=== PATIENT | female | born 1930 | race African-American/Black ===

== ENCOUNTER 2019-04-03 19:19 | Inpatient (IN) | payer OTHER, BC ==
[~2019-04-03] VITALS: Ht 152.4 cm; Wt 59.1 kg
--- NOTE | ~2019-04-03 | D ---
[facility] [place] [address] DISCHARGE SUMMARY Name: MATTHEW CALDERON Room #: 526B-B [facility] IN M.R.#: [id number] Admission: 04/03/19 Attend Phys: Raymond Billings DO Discharge: 04/11/19 Date of : [birth year] Report #: [id number] THIS REPORT FOR: cc: Ana Marx MD, Malathi MD Kerstein,Raymond Florence DO ~ THIS REPORT FOR: //name// CC: Raymond Marx DATE OF SERVICE: 04/11/2019 PSYCHIATRIC DISCHARGE SUMMARY ATTENDING PHYSICIAN: Raymond Billings DO FIXING CARPENTER: At time of discharge, Blu Pham MD DISCHARGE DIAGNOSES: Major neurocognitive disorder, likely multifactorial with behavioral disturbance. MEDICAL COMORBIDITIES: Include acute on chronic renal failure, protein-calorie malnutrition, dysphagia, urinary frequency. DISCHARGE PLAN: The patient is discharging to the [facility]. Psychiatric medical care by receiving facility. DISCHARGE DIET: Mechanical ground. DISCHARGE MEDICATIONS: Taking Haldol 2 mg p.o. twice per day for psychosis, DuoNeb, ipratropium, albuterol 3 mL inhaled q. 4 hours p.r.n. shortness of breath, tamsulosin 0.8 mg p.o. daily for urinary incontinence. Please note, Depakote was stopped this admission due to repeated low blood levels. LABORATORY DATA: Significant laboratories this admission; H and H 12.3 and 39.2, white count 6.8, platelet count 265. ____ renal function; creatinine improved to 1.1, glucose 101, calcium 9.3. REASON FOR ADMISSION: Back on 04/03/2019, 88-year-old female sent to the ED. HOSPITAL COURSE: The patient was admitted to Geriatric Psychiatry Unit. Initially, difficult ____ antipsychotic as her reasons for admission was somewhat ____ ended up taking Haldol 2 mg p.o. twice per day. PHYSICAL EXAMINATION: [facility] [address] [place] [address] DISCHARGE SUMMARY Name: MATTHEW CALDERON Room #: 526B-B [facility] IN M.R.#: [id number] Admission: 04/03/19 Attend Phys: Raymond Billings DO Discharge: 04/11/19 Date of : [birth year] Report #: [id number] VITAL SIGNS: On the day of discharge; temp 36.9, pulse 72, respirations 18, BP 130/53, O2 sat 96%. MUSCULOSKELETAL: Nonambulatory. MENTAL STATUS EXAMINATION: This is a well-developed, black female, appearing stated age. Attention limited. Concentration limited. Speech normal rate. Denied suicidality. Denied homicidality. Memory not formally tested. Insight impaired. Judgment impaired. Fund of knowledge well below average. PROGNOSIS: For this patient is guarded and will depend on her other family members to help for getting her limitations. By: [id number] Raymond Billings DO /nt
[2019-04-03 19:21] VITALS: BP 128/101
[2019-04-03] MEDS ORDERED: ACETAMINOPHEN PO (19:32)
[2019-04-03] MEDS ORDERED: FAMOTIDINE 10 M10 MG PO (19:33)
[2019-04-03] MEDS ORDERED: EXELON1 EACH TRANSDERM (19:33)
[2019-04-03] MEDS ORDERED: VALPROIC A250 MG/51 PO (19:33)
[2019-04-03] MEDS ORDERED: IPRAT-ALBUT 0.5-3 ML INH (19:34)
[2019-04-03] MEDS ORDERED: ENBRACE HR SOF1 EACH PO (19:34)
[2019-04-03] MEDS ORDERED: TAMSULOSIN HCL0.4 MG PO (19:35)
[2019-04-03] MEDS ORDERED: GEODON20 M1 IM (19:35)
[2019-04-03] MEDS ORDERED: ZOFRAN4 MG PO (19:36)
[2019-04-03 19:43] LABS: HEMATOCRIT 39.2 % (37.0-47.0); HEMOGLOBIN 12.3 gm/dL (12.0-15.0); MCH 26.4 pg (26.0-34.0); MCHC 31.4 g/dL (28.0-37.0); MCV 84.1 fL (80.0-100.0); RBC 4.66 mil/uL (4.20-5.00); RDW 15.9 % (10.5-14.5); WBC 6.8 thou/uL (4.0-11.0)
[2019-04-03 19:44] LABS: URINE BILIRUBIN NEGATIVE (Negative); URINE BLOOD NEGATIVE (Negative); URINE CLARITY CLEAR; URINE COLOR YELLOW; URINE GLUCOSE-RANDOM* NEGATIVE (Negative); URINE KETONES 1+ (Negative); URINE LEUKOCYTES-REFLEX NEGATIVE (Negative); URINE NITRITE-REFLEX NEGATIVE (Negative); URINE PROTEIN (DIPSTICK) NEGATIVE (Negative); URINE SPECIFIC GRAVITY 1.015 (1.005-1.035)
[2019-04-03 19:50] LABS: CALCIUM 9.5 mg/dL (8.5-10.1); CREATININE 1.4 mg/dL (0.6-1.0); POTASSIUM 4.2 mmol/L (3.5-5.1)
--- NOTE | 2019-04-03 20:15 | NUR ---
SPOKE TO EDWIN DUMONT FROM [facility]. WILL BE DOWN TO COMPLETE AN ASSESSMENT SHORTLY.
[2019-04-03 22:30] VITALS: BP 167/89
[2019-04-03 22:47] VITALS: BP 135/84
--- NOTE | 2019-04-04 01:13 | NUR ---
ARRIVED ON THE [facility] FLOOR VIA GURNEY ACCOMPANIED BY ED STAFF @ 22:35, TRANSFERRED FROM [facility] TO BED 522A X2 STAFF ASSIST. AMBULATED 4 STEPS TO BED X1 ASSIST. DROWSY, AWAKENED TO TRANSFER AND RETURNED TO SLEEP AFTER ASSESSMENT. ORIENTED X 1 GIVES HER NAME LISS, ANSWERS NO OTHER ORIENTATION QUESTIONS AT THIS TIME. VS 135/84 78 16 98%. HRRR, S1S2 AUSCULTATED. LUNG SOUNDS DIMINISHED NOT BREATHING DEEPLY, SEEMS UNABLE TO FOLLOW DIRECTIONS. ABD N X 4 Q. SKIN ON HEELS INTACT, CAP REFILL <3SEC. PINK PRESSURE NOTED TO BUTTOCKS. HEIGHT 5', WEIGHT 150.8. FALL PRECAUTIONS PUT IN PLACE. DIET IS MECHANICAL GROUND CHOP. DIETARY CONSULT FOR BEDSIDE SWOLLOW STUDY. HOSPITALIST CONSULT DR ROSA, PT CONSULT. SLEEPING AT THIS WRITING, BED IN LOW POSITION, BED ALARM SET, WILL CONTINUE TO MONITOR Q 12 MINUTES FOR PATIENT SAFETY.
--- NOTE | 2019-04-04 06:29 | NUR ---
SLEPT 2.4 HOURS OVERNIGHT.
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
[2019-04-04 10:17] LABS: ALBUMIN 3.3 g/dL (3.4-5.0); DIRECT BILIRUBIN 0.2 mg/dL (<0.1-0.2); TOTAL BILIRUBIN 0.7 mg/dL (<0.1-1.0); TOTAL PROTEIN 6.7 g/dL (6.4-8.2)
[2019-04-04 10:36] LABS: TSH 2.717 uIU/mL (0.358-3.740)
--- NOTE | 2019-04-04 11:03 | NUR ---
Sw spoke with pt's son/guardian Caleb and he reported that she has living at [facility] since Feb and was at [facility] prior to this. Pt was [facility] [place] [facility]. Pt will d/c to [facility] when stable. Lulú will send updates and assist with d/c planning. Intake assessment and TP are completed. Family meeting set up for Apr 06 at 2pm.
[2019-04-04 11:32] VITALS: BP 135/84
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
[2019-04-04 19:15] VITALS: BP 135/56
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
[2019-04-05 07:30] VITALS: BP 132/52
[2019-04-05 11:12] VITALS: BP 132/52
--- NOTE | 2019-04-05 11:40 | NUR ---
ASSUMED CARE AT 0700 THIS MORNING. PT. IN BED, GOTTEN UP BY COMMISSIONING MANAGER'S. SHE IS DRESSED AND IN A W/C. ON THE UNIT FOR BREAKFAST. COOPERATIVE WITH ASSESSMENT. STATES SHE IS NOT IN PAIN AND DENIED NEEDING HELP. FEEDS HERSELF. COOPERATIUE WITH TAKING MEDICATIONS. DENIES SI/HI TODAY WELL AVH. AFFECT FLAT, BUT DENIES DEPRESSION.
[2019-04-05 19:37] VITALS: BP 128/72
[2019-04-05 21:00] VITALS: BP 128/72
--- NOTE | 2019-04-06 03:52 | NUR ---
ASSESSMENT: PT REMAIN ALERT AND ORIENT TIMES THREE. REFUSED TO TAKE DEPAKOTE, IM ZIPARASIDONE GIVEN PER ORDERS. VSS, AFEBRILE. SLEPT ALL NIGHT LONG. EASY TO AWAKE, DID NOT VERBALLY RESPOND TO THIS RN. UP WITH GB AND ASSIST OF ONE TO THE BR. SLOW PROGRESS TOWARDS DC GOALS, WILL CONTINUE TO MONITOR.
[2019-04-06 05:38] VITALS: BP 128/72
[2019-04-06 07:55] VITALS: BP 106/69
[2019-04-06 11:12] VITALS: BP 132/52
--- NOTE | 2019-04-06 15:13 | NUR ---
BRET and Dr Billings met with Caleb to discuss care and d/c plans. Dr billings provided medication and dementia education. Caleb is satisfied with pt discahrging to [facility] on Wednesday. Pt will need at least 3 days of meds compliance to d/c. BRET sent updates to [facility] this am and spoke with a nurse there. It was reported that she might be ready to d/c wednesday. [facility] understands and supports this d/c plan.
--- NOTE | 2019-04-06 15:46 | NUR ---
PATIENT WAS IN BED WHEN CARE ASSUMED, ASSISTED UP IN W/C BY STAFF. PATIENT USES W/C FOR MOBILITY, ABLE TO AMBULATE A SHORT DISTANCE WITH ASSIST OF ROLLER WALKER. PATIENT IS EATING MEALS, AND DRINKING FUID WELL. PATIENT DENIES SUICIDAL/HOMICIDAL IDEATION. PATIENT HAS BEEN CALM, COOPERAIVE WITH CARE. SHE PARTICIPATES IN GROUP THERAPY. AFFECT IS BRIGHT, MOOD IS HAPPY. NO AGGRESSION OR AGITATION NOTED, SITTING QUIETLY BY A TABLE DOING SOME DRAWINGS, WILL MONITOR FOR SAFETY.
[2019-04-06 19:30] VITALS: BP 96/63
--- NOTE | 2019-04-07 00:05 | NUR ---
ASSUMED CARE ON 04/06/19 AT 1915, PATIENT IS ALERT AND ORIENTED X2-3, SHE IS CALM AND COOPERATIVE WITH THIS NURSE. DURING ONE TO ONE PATIENT WAS IN BED WITH EYES CLOSED THAT OPENED SPONTANEOUSLY TO MY VOICE. SHE APPEARS WITH A EUTHYMIC AFFECT, GREETED THIS NURSE POLITELY AND REPORTS 'IM DOING FINE.' SHE DENIES FEELINGS OF ANXIETY, DENIES SI HI, ET FEELINGS OF DEPRESSION. SHE IS COOPERATIVE WITH MEDICATION AND DID NOT REPORT ANY MEDICAL CONCERNS, SHE ALSO DOESNT APPEAR TO BE IN DISTRESS. NURSING WILL MAINTAIN ALL PRECAUTIONS TO ENSURE SAFETY AT ALL TIMES.
[2019-04-07 07:45] VITALS: BP 160/66
--- NOTE | 2019-04-07 13:39 | NUR ---
During treatment team meeting this am it was discovered that this pt needed another IM last night, so d/c will be put off a few more days. will need 3 days post IM. D/C could be Wednesday or Wed next week. Weekend Sw will send updates on Wednesday.
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
[2019-04-07 21:13] VITALS: BP 131/56
--- NOTE | 2019-04-08 07:41 | NUR ---
PROGRESS PT ALERT AND ORIENTED TO SELF, PLACE, AND STAFF TO BED AFTER EVENING MEDS SLEPT ALL NOC.
[2019-04-08 09:38] VITALS: BP 121/49
--- NOTE | 2019-04-08 18:03 | NUR ---
Assumed patient care at 0715. Patient's vital signs have been stable. She has consumed adequate food and fluids during this shift. Patient has been noted to converse with one female patient during this shift. No other noted interactions. Patient refused half of her am medications. Medications were placed in applesauce (she took one bite from a familiar nurse). Patient refused to interact with this nurse. No aggressive behavior noted. No suicidal and/or homicidal statements made. Patient continues to be a fall risk, gait is unsteady with rolling walker. She is incontinent at times. Last reported BM was 04/07/2019. Will continue to monitor.
[2019-04-08 19:50] VITALS: BP 125/78
[2019-04-09 05:55] LABS: CALCIUM 9.3 mg/dL (8.5-10.1); CREATININE 1.1 mg/dL (0.6-1.0); POTASSIUM 4.3 mmol/L (3.5-5.1)
--- NOTE | 2019-04-09 07:55 | NUR ---
PROGRESS PT ALERT AND ORIENTED TO SELF, PLACE, CONFUSED ABOUT TIME AND DATE. DOES TALK TO HERSELF WHEN SHE THINKS SHES ALONE REFUSED TO ANSWER IF SHE WAS HALLUCINATING. VOIDED AN EXTRA LARGE AMOUNT OF URINE IN BRIEF, TOOK SHOWER THIS AM WITH MODERATE ASSISTANCE SKIN IS DRY SO BARRIER CREAM APPLIED, WEARING PULL UP BRIEF. TOLERATING DIET WITH ADEQUATE PO FLUID INTAKE.
[2019-04-09 09:24] VITALS: BP 145/71
--- NOTE | 2019-04-09 15:32 | NUR ---
PT A&OX3, DENIES SI/HI. PATIENT SAT MOST OF DAY IN DAY ROOM. PATIENT INTERACTED WITH ROOMMATE. PATIENT MOOD IS APPROPRIATE AND COOPERATIVE, HER FACIAL EXPRESSION IS FLAT. PATIENT TOLERATED MEALS. WILL CONTINUE TO MONITOR.
[2019-04-09 19:59] VITALS: BP 147/66
--- NOTE | 2019-04-10 07:29 | NUR ---
PROGRESS PT AWAKE AND ALERT AT START OF SHIFT MEDS GIVEN AND PT ASSISTED TO BED AND SLEPT ALL NIGHT.
[2019-04-10 07:54] VITALS: BP 140/61
--- NOTE | 2019-04-10 08:00 | NUR ---
PT NOT UP AT THIS TIME. PT SLEEPING IN BED. PT VS STABLE.
--- NOTE | 2019-04-10 12:45 | NUR ---
PT UP NOW AT THIS TIME. PT WALKED WITH WALKER DOWN TO DINING ROOM. PT SAT DOWN IN CHAIR AND AT 50% OF LUNCH.
--- NOTE | 2019-04-10 12:46 | NUR ---
PT STILL SLEEPING AT THIS TIME.
[2019-04-10 13:00] VITALS: BP 140/61
--- NOTE | 2019-04-10 13:15 | NUR ---
PT TOOK MEDS IN PUDDING AND WATER.
--- NOTE | 2019-04-10 13:16 | NUR ---
PT ONLY TOOK ONE FLOMAX AND STATED SHE DIDN'T WANT ANY MORE DUE TO NOT BEING SICK, PT STATED IF SHE WAS SICK SHE WOULD TAKE MEDS.
--- NOTE | 2019-04-10 13:53 | NUR ---
BRET contacted Fanny with [facility] who said d/c on 04/11 @10am is okay. She said they do not provide transportation. She gave the fax number of [phone] to fax P/T orders to and d/c orders tomorrow. BRET faxed p/t orders to number given. BRET contacted [facility] and arranged for transportion. Trip # [id number] BRET provided an update to pt's nursing staff. BRET team will continue to follow pt during her stay on this unit.
[2019-04-10 20:26] VITALS: BP 102/79
[2019-04-10 20:45] VITALS: BP 102/79
--- NOTE | 2019-04-11 00:07 | NUR ---
PATIENT REFUSED HER HS MEDS OF TRAVIS BEJARANO. SHE HAS BEEN CALM AND COOPERATIVE. SHE WAS ASLEEP IN BED WHEN I CAME ON DUTY AT 1900. SHE CONTINUES TO SLEEP. SHE DOES AWAKE AND SPEAK WHEN SPOKEN TOO. SHE DOESN'T WANT TO TAKE MEDS BECAUSE SHE THINKS NOTHING IS WRONG WITH HER. I TRIED TO COAX HER AND EXPLAIN WHY SHE NEEDED THE MEDS IN A SIMPLE WAY WITHOUT SUCCESS. PATIENT'S WC NEXT TO BED. INCONTINENT CARES BEING DONE. SHE HAS BEEN CALM AND COOPERATIVE. BED IN LOW POSITION AND BED ALARM ON.
--- NOTE | 2019-04-11 08:45 | NUR ---
PT SITTING OUT IN DINING ROOM. PT EATING BREAKFAST. PT ASKING WHAT TIME SHE IS LEAVING TODAY. PT LEAVING AT 1000. PT TOOK MEDS WITHOUT ANY ISSUES THIS AM.
[2019-04-11 09:00] VITALS: BP 130/53
[2019-04-11] MEDS ORDERED: HALOPERIDOL 1 MG1 MG PO (09:00)
[2019-04-11 09:40] VITALS: BP 130/53
--- NOTE | 2019-04-11 10:00 | NUR ---
PT LEFT VIA W/C VAN ACCOMPANIED BY STAFF.
--- NOTE | 2019-04-11 10:00 | NUR ---
SW sent updates, d/c summary and meds list to [facility], made packet and provided this update to the nurse. FAX packet was left on chart with confirmation.
--- NOTE | 2019-04-11 10:15 | NUR ---
GAVE REPORT TO THERESE PINEDA AT [facility].
== END 2019-04-11 10:00 | disposition short-term general hospital (02) | DRG 57 ==
LOC: ER 19:19 → SBH 21:56 → EROBS 21:56 → SBH 21:56 → EROBS 21:56 → SBH 22:45
PROVIDERS: Emergency Medicine Emergency Medical Services; Hospitalist; ADMIT Psychiatry & Neurology Psychiatry
DX: G30.9 Alzheimer's disease, unspecified (principal); F01.51 Vascular dementia, unspecified severity, with behavioral disturbance; N17.9 Acute kidney failure, unspecified; N18.3 Chronic kidney disease, stage 3 (moderate); F02.81 Dementia in other diseases classified elsewhere, unspecified severity, with behavioral disturbance; E46 Unspecified protein-calorie malnutrition; R13.10 Dysphagia, unspecified; K21.9 Gastro-esophageal reflux disease without esophagitis; R35.0 Frequency of micturition; Z68.25 Body mass index [BMI] 25.0-25.9, adult; Z79.899 Other long term (current) drug therapy
CPT/HCPCS: 10880

== ENCOUNTER 2019-06-07 18:35 | Inpatient (IN) | payer OTHER ==
[~2019-06-07] VITALS: Ht 142.2 cm; Wt 73.4 kg
[~2019-06-07 18:35] MED LIST: ACETAMINOPHEN PO; ENBRACE HR SOF1 EACH PO; EXELON1 EACH TRANSDERM; FAMOTIDINE 10 M10 MG PO; GEODON20 M1 IM; HALOPERIDOL 1 MG1 MG PO; IPRAT-ALBUT 0.5-3 ML INH; TAMSULOSIN HCL0.4 MG PO; VALPROIC A250 MG/51 PO; ZOFRAN4 MG PO
[2019-06-07 18:36] VITALS: BP 141/69
[2019-06-07] MEDS ORDERED: TYLENOL325 MG PO (19:01)
[2019-06-07] MEDS ORDERED: MILK OF MA400 MG/5 M PO (19:02)
[2019-06-07] MEDS ORDERED: VITAMIN D210 MCG (19:03)
[2019-06-07 19:04] LABS: ABSOLUTE NEUTROPHILS 4.5 thou/uL (1.4-8.2); BASOPHILS 0.7 % (0.0-2.0); EOSINOPHILS 6.2 % (0.0-3.0); HEMATOCRIT 34.7 % (37.0-47.0); HEMOGLOBIN 11.2 gm/dL (12.0-15.0); LYMPHOCYTES 20.2 % (24.0-44.0); MCH 27.2 pg (26.0-34.0); MCHC 32.3 g/dL (28.0-37.0); MONOCYTES 11.8 % (1.0-8.0); PLATELET COUNT 266 thou/uL (150-400); POLYS 61.1 % (36.0-66.0); RBC 4.13 mil/uL (4.20-5.00); RDW 15.6 % (10.5-14.5); WBC 7.3 thou/uL (4.0-11.0)
[2019-06-07] MEDS ORDERED: VITAMIN D3250 MC2 PO (19:05)
[2019-06-07 19:18] LABS: CALCIUM 9.3 mg/dL (8.5-10.1); CREATININE 1.2 mg/dL (0.6-1.0)
[2019-06-07 19:24] LABS: ALBUMIN 2.9 g/dL (3.4-5.0); TOTAL BILIRUBIN 0.4 mg/dL (<0.1-1.0); TOTAL PROTEIN 6.6 g/dL (6.4-8.2)
[2019-06-07 19:26] LABS: URINE BILIRUBIN NEGATIVE (Negative); URINE BLOOD NEGATIVE (Negative); URINE CLARITY CLEAR; URINE COLOR YELLOW; URINE GLUCOSE-RANDOM* NEGATIVE (Negative); URINE KETONES NEGATIVE (Negative); URINE LEUKOCYTES-REFLEX NEGATIVE (Negative); URINE NITRITE-REFLEX NEGATIVE (Negative); URINE PROTEIN (DIPSTICK) NEGATIVE (Negative); URINE SPECIFIC GRAVITY >= 1.030 (1.005-1.035)
[2019-06-07 19:39] LABS: AMP/METHAMP Negative (Negative); BARBITURATES Negative (Negative); BENZODIAZEPINES Negative (Negative); COCAINE Negative (Negative); METHADONE Negative (Negative); OPIATES Negative (Negative); PCP Negative (Negative)
[2019-06-07 20:39] VITALS: BP 141/69
[2019-06-07 21:30] VITALS: BP 163/84
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
[2019-06-08 09:26] VITALS: BP 143/66
--- NOTE | 2019-06-08 09:59 | NUR ---
0700 ASSUMED CARE OF PATIENT, PATIENT IN ROOM AT THAT TIME. PATIENT TO DAYROOM FOR BREAKFAST VIA WC. PATIENT DENIES NEEDS AT THAT TIME.
--- NOTE | 2019-06-08 10:08 | NUR ---
BRET completed chart review and pt is familiar to this worker. SW compelted the intake assessment and TP. BRET called Caleb Rome Guardian to confirm her admission here and that he wants her to d/c júnior to [facility] at D/C.
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
--- NOTE | 2019-06-08 11:11 | NUR ---
I spoke with the Employee Benefits Insurance Agent of [facility] yesterday 06/07/19. We were needing confirmation that if we admitted Alysia that [facility] would take her back, once she becomes stable. He reassured me that they would take her back. Her admission is contingent upon her returning to [facility].
--- NOTE | 2019-06-08 11:51 | NUR ---
On Jun 07, 2019 I called to speak with the admission coordinator of [facility]. This call was to make sure that if we admitted Alysia they would readmit her. The media coordinator returned my call today. I informed her that I spoke with her application systems administrator regarding Alysia being readmitted to [facility]. She was in agreement of readmitting Alysia once she is stable. The rationale for this confirmation of accepting Alysia back, was ddue to we had made a referral to them and the media coordinator refused to accept our patient due to the patient had not been tested for COVID. She denied that reasoning. She stated the reason they denied our patient was due to they did not have bed available. I reiterated that the message I was given the denial was due to hte patient not being tested for COVID. She was in agreement for Alysia being readmitted to [facility].
[2019-06-08] MEDS ORDERED: NYSTATIN1 EAC2 MISCELL (12:31)
[2019-06-08] MEDS ORDERED: NEBULIZER MISCELL (12:32)
[2019-06-08] MEDS ORDERED: IPRAT-ALBUT 0.5-3 ML INH (12:33)
[2019-06-08] MEDS ORDERED: ZOFRAN4 MG PO (12:36)
[2019-06-08] MEDS ORDERED: BIOFREEZE118 ML TOP (12:38)
[2019-06-08] MEDS ORDERED: HALOPERIDOL 1 MG1 MG PO (12:39)
--- NOTE | 2019-06-08 14:22 | NUR ---
Pt was sleepy. No gorups due to COVID 19 restrictions
--- NOTE | 2019-06-08 19:13 | NUR ---
AT 1720 ATTEMPTED TO WAKE PATIENT UP TO EAT DINNER. PATIENT WILL NOT WAKE UP AND KEEPS EYES CLOSED EVEN WITH MOVEMENT AND CALLING OUT NAME. REACTED TO STERNAL RUB SCREAMING AND PINCHING NURSES. PATIENT QUICKLY SHUTS EYES AND AGAIN HAS NO RESPONSE TO STAFF. AT 1750 PATIENT TAKEN TO ROOM VIA WC AND WITH ASSIST X3 PATIENT TO BED. PATIENT CONTINUE TO KEEP EYES CLOSE WHILE BEING TRANSFERED TO BED. PATIENT TURNED TO SIDE AND BOTTOM CHECKED. BRIEF NOTED TO BE DRY AND NO BED SORES NOTED TO BOTTOM. CLEAN GOWN ON AND COVERED PATIENT WITH BLANKETS. WHEN TEXTURING MACHINE FIXER STARTS TO LEAVE PATIENT OPENS EYES TO SEE IF STAFF IS GONE THE SOON SHE SEES TEXTURING MACHINE FIXER SHE QUICKLY SHUTS EYES. REPORT GIVEN TO ONCOMING SHIFT.
--- NOTE | 2019-06-08 22:39 | NUR ---
Care assumed of patient at 191: Patient sleeping in bed at start of shift. Patient woke up and was assisted to the bedside commode. Continent of bladder. After using the bathroom, patient started to become combative with staff. Patient scratching staff, swinging arms, swinging legs, yelling. Patient required staff x7 to be assisted due to increased behaviors. Attempting to bite, cursing. Despite all attempts at re-direction, not effective. MD notified. Order obtained for Ativan and Haldol IM. Medication administered with staff x7. Patient attempting to walk and pace about room. Unsteady gait, poor balance, weakness. After approximately 20 minutes, patient was able to sit in w/c in her room. Provided blanket and has remained resting in w/c, refusing to go to bed. Patient refused HS medication. Spit medication out on floor. Refused HS snack. Refused head to toe assessment. Patient delusional about being to the President, her estate being stolen. Demanding for her grandson to come get her to take her home. Stating that she has been "dumped here" against her will. No s/s of SI/HI/AH/VH. No s/s of pain or discomfort noted. Patient seated quietly in w/c in her room now, appears to be sleeping.
[2019-06-09 08:10] VITALS: BP 132/40
[2019-06-09 09:38] VITALS: BP 132/40
--- NOTE | 2019-06-09 15:56 | NUR ---
SW met with Pt 1 on in the common area/ dinning room. Pt is only oriented to self. Pt did stated she was hungry and had ate lunch and a snack. SW informed Pt on when dinner will be servered. Pt stated she understood. Pt did not express any other concerns or needs at this time. Due to COVID-19 restiction SW group has been canceled
--- NOTE | 2019-06-09 17:10 | NUR ---
Assumed pt care this am, initally was lethargic in the am and did not want to go out for breakfast. VS stable, was able to get the pt out for lunch and dinner using her wheelchair. Continent of both bowel and bladder, pt is able to transfer and walk using small steps from the WC to the toilet with minimal assistance, pt had a large bm today. Has a good appetite, medication and diet are well tolerated, hydration encouraged. POC followed, no signs or verbalizations of distress have been noted. Spent most of her time in her WC in the dining area watching TV and would doze off.
--- NOTE | 2019-06-09 22:48 | NUR ---
Care assumed of patient at 1915: Patient sleeping in bed at start of shift. Patient easily arousable. Alert and oriented to person only. Confused and forgetful. Calm, pleasant and cooperative. Slow to respond. Denies pain or discomfort. Compliant with nursing assessment. Answering yes/no questions appropriately. No delusional or paranonia statements observed. Declined HS snack. Took HS medication whole without difficulty. Allowed nurse to administer eye drops without incident. No aggression or agitation observed. Denies SI/HI/AH/VH. No statements made regarding going home, speaking with her grandson or her "estate". Patient has been resting quietly in bed thus far this shift.
[2019-06-10 07:53] VITALS: BP 141/63
--- NOTE | 2019-06-10 10:27 | NUR ---
Assumed care of pt at 0700. Pt awake, calm and seated at bedside. Pt alert to self and somewhat confused/forgetful. Pt assisted to dayroom by nurse, ambulating with walker. Pt took all scheduled meds whole, without difficulty. Pt denies SI/HI/AH/VH. Pt assisted with shower and tolerated well. Pt participated in group and seated in dayroom for activities. Will continue to monitor.
[2019-06-10 10:39] VITALS: BP 141/63
--- NOTE | 2019-06-10 14:18 | NUR ---
0700 Lying in bed without s/o distress. Alert, orientated to self only. No speech/behavior suggestive of SI/HI. Ambulates with slow gait with walker to dining room. Breath sounds clear t/o. Reg HR auscultated. Color pink with brisk capillary refill and palpable peripheral pulses. +1 edema to lower extremities. Incontinent of yellow urine but then urinated moderate amount in bedside commode. Active bowel sounds over soft, rounded abdomen.
--- NOTE | 2019-06-10 17:30 | NUR ---
SW met with patients individually instead of group due to COVID-19 guideline Patient stated her name to SW but did not engage otherwise.
[2019-06-10 22:00] VITALS: BP 141/63
--- NOTE | 2019-06-11 00:22 | NUR ---
Assumed care of patient this pm shift. Patient in bed in her room lying down. Patient calm and cooperative. Patient states that she is well and does not need to be here or take any medication. Patient refused night meds. Patient denies hi/si. Patient denies pain. Patient in hospital gown. Patient ambulates with walker and has a bedside commode available. Patients assessment shows clear breath sounds, active bowel sounds, and s1 s2 heard with auscultation. Patients affect is blunted. We will continue to monitor.
[2019-06-11 09:33] VITALS: BP 157/57
[2019-06-11 10:15] VITALS: BP 157/57
--- NOTE | 2019-06-11 10:22 | NUR ---
ASSUMED CARE AT 0700 THIS MORNING. SHE WAS GOTTEN UP BY ASSISTANT CENTER MANAGER'S FOR BREAKFAST. SHE WAS COUGHING.
--- NOTE | 2019-06-11 16:50 | NUR ---
SW completed 1 on 1 vs. group due to COVID-19 guidelines. Patient was sleeping during rounds.
--- NOTE | 2019-06-11 17:50 | NUR ---
SW faxed nursing notes and progress report to [facility].
[2019-06-11 19:33] VITALS: BP 107/57
--- NOTE | 2019-06-12 01:28 | NUR ---
Assumed care of patient this pm shift. Patient was sitting in the mileu at a table by herself having a snack. Patient was irritable about taking her evening medications but eventually did take them. Patients affect is blunted. Patient states that her grandson put her in this facility so that he could take over her estate. 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 Patients assessment shows clear breath sounds, active bowel sounds, and s1 s2 heard with auscultation. Patient uses the bedside commode with assistance. Patient takes medications whole. Patient ambulates with walker or wheelchair. We will continue to monitor.
[2019-06-12 08:19] VITALS: BP 141/60
[2019-06-12 11:45] VITALS: BP 141/60
--- NOTE | 2019-06-12 11:55 | NUR ---
Assumed care of pt at 0700. Pt lying in bed sleeping. 0730, Pt awake, alert and assisted w/ADLs. Pt assisted to day (via walker) and seated at table. Pt tolerated scheduled meds well without difficutly. Pt continues to have reddened r. eye and tolerates scheduled eye drops well. Pt has an order for CXR for dry cough since she's had upon admission. Pt denies pain, denies SI/HI/AVH. Pt will stay in room for meals/groups until further notice. Will continue to monitor.
[2019-06-12 16:29] VITALS: BP 119/72
[2019-06-12 19:20] VITALS: BP 134/72
[2019-06-12 22:01] VITALS: BP 134/72
--- NOTE | 2019-06-12 22:23 | NUR ---
PATIENT WAS UP IN WC IN HER ROOM WHEN THIS NURSE CAME ON AT 1900. PT WAS ASSISTED TO THE BSC WHERE SHE VOIDED AND HAD A LARGE FORMED BM. PATIENT WAS GIVEN MARKERS AND PAPER TO COLOR ON AT BEDSIDE TABLE. PT STATES HER MID LOWER BACK/ABDOMEN WAS HURTING. TYLENOL 650MG VIVEN AT 195. PATIENT WAS A/0X 2-3 BUT FRUSTRATED SHE COULD NOT LEAVE ROOM D/T A DRY COUGH SHE HAS BEEN HAVING. LORAZEPAM 0.5MG GIVEN AT 194 TO HELP HER ANXIETY AND HELP TO RELAX. PATIENT TOOK HER HS MEDS EARLY D/T SHE WAS GETTING DROWSY AND WANTED TO GO TO BED. PATIENT ASSISTED BY 2 TO BED D/T SEDATED/DROWSY FROM MEDS. PATIENT'S LUNGS ARE CTA BILATERALLY. DRY COUGH X 1 SO FAR TONIGHT. NONPRODUCTIVE. VSS AND NO FEVER. PATIENT IS SLEEPING COMFORTABLY AND WALKER IS BESIDE BED. BSC BESIDE BED ALSO. BED IN LOW POSITION AND BED ALARM ON D/T SEDATED WITH MEDS AND MAY NEED ASSISTANCE WITH BALANCE. WILL CONTINUE TO MONITOR. PATIENT DID HAVE ICE CREAM IN ROOM FOR HS SNACK. RIGHT EYE CONTINUES TO BE RED AND LEFT EYE IS CLEAR BUT WAS SORE TONIGHT. CIPRO EYE GTTS TOLERATED WELL. CONTINUING TO MONITOR.
--- NOTE | 2019-06-13 04:32 | NUR ---
PATIENT HAS BEEN SLEEPING SOUNDLY THRU NIGHT AND HAS NOT AWAKENED TO USE THE BATHROOM. FREQUENT CHECKS ON PATIENT TO CHECK ON RESPIRATIONS SINCE HAD HALDOL AND LORAZEPAM. PATIENT APPEARS COMFORTABLE ANDSLEEPING SOUNDLY. BED IN LOW POSITION. BED ALARM ON. WC BESIDE BED AND BSC BY BED. CONTINUING TO MONITOR.
--- NOTE | 2019-06-13 05:49 | NUR ---
PATIENT STILL SLEEPING. PATIENT HAS COUGHED DRY COUGH ONCE TONIGHT AND DID NOT LAST LONG. LUNGS CTA. PATIENT CONTINUES DOXYCYCLINE FOR BRONCHITIS. CONTINUING TO MONITOR.
[2019-06-13 07:46] VITALS: BP 138/77
--- NOTE | 2019-06-13 13:56 | NUR ---
Due to COVID-19 guidelines, HANG GLIDING INSTRUCTOR is meeting 1:[address] of group activity. Patient approached x2 as of this time and has been asleep and difficult to make alert.
--- NOTE | 2019-06-13 15:00 | NUR ---
Lulú spoke with Dr Luna and d/c was set for 06/13. Lulú called [facility] and pt can d/c nback there tomorrow at 11 am. Lulú set up transportation for 11 am. Packet was made and left on chart. Lulú then called Caleb PARRISH and reported on meds changes and that pt would d/c tomorrow. He is satisfied with this outcome. Lulú also reported the d/c to nursing staff.
[2019-06-13 16:12] VITALS: BP 121/64
--- NOTE | 2019-06-13 16:44 | NUR ---
RECEIVED MESSAGE TO CALL THERESE OR CALEB AT [facility]-WHEN THIS RN RETURNED CALL ESTELLE LLANOS STATES SHE IS "WORRIED" ABOUT PTS RETURN TOMORROW MATTHEW HAS A HX OF TAKING MEDICATIONS HERE BUT REFUSING UPON RETURN TO FACILITY. DON REQUESTING IM MEDICATIONS,"MAYBE MARCOS" STATING "THE HALDOL DOESN'T DO ANYTHING FOR HER ANYMORE" STATES ANY CREAMS,LIQUID MEDS,MONTHLY INJECTIONS WOULS HELP. MESSAGE LEFT FOR BRET CORDOVA AND DR. WASSERMAN RE ABOVE REQUEST FROM FACILITY.
[2019-06-13 19:56] VITALS: BP 161/62
--- NOTE | 2019-06-13 23:49 | NUR ---
Assumed care on 06/13/19 @ 1900, cooperated with assessment, refused po meds x2 attempts. PRN IM Haldol 2 mg @ 21:25 with x2 staff assistance. Oriented x1 with confusion and forgetfulness noted. Denies being in the hospital, denies physical or mental illness, denies having seen the doctor on a daily basis. HRRR, Lungs CTA with shallow respirations, ABD N x 4Q. Last reported BM 06/11. At this writing is asleep in bed with the bed in low position, bed alarm set.
[2019-06-13 23:55] VITALS: BP 161/62
--- NOTE | 2019-06-14 06:28 | NUR ---
slept 9.2 hours overnight
[2019-06-14 09:05] VITALS: BP 124/74
[2019-06-14] MEDS ORDERED: HALOPERIDOL 1 MG1 MG PO (09:22)
[2019-06-14] MEDS ORDERED: DOXYCYCLINE HYC50 MG PO (09:22)
[2019-06-14] MEDS ORDERED: CIPROFLOXIN HC2.5 M1 OPHTHALMIC (09:22)
[2019-06-14] MEDS ORDERED: ZYPREXA ZYDIS5 MG PO (09:24)
--- NOTE | 2019-06-14 11:01 | NUR ---
REPORT CALLED TO АНДРЕЙ AT [facility]-GUARDIAN SON EMILY ALVAREZ CONTACTED VIA PHONE AND DC PAPERWORK INCLUDING MEDICARE DC LETTER AND MEDICATIONS AND FOLLOW UP RECOMMENDATIONS REVIEWED WITH GUARDIAN-HE STATES UNDERSTANDING AND DENIES ANY QUESTIONS/CONCERNS. PT PERSONAL BELONGINGS CHECKED AGAINST ADMIT INVENTORY AND SENT WITH PT-DISCHARGED FROM UNIT ACCOMPNIED BY NURSING STAFF VIA WC TO [facility]. PT ALERT AND DENIES COMPLAINTS AT THE TIME OF DC.
--- NOTE | 2019-06-14 11:32 | NUR ---
Lulú faxed with confimaion reciept the d/c summary and orders, included the DA 124 C and a signed COVID 19 screen that pt has no signs or symptoms of COVID 19. Left this packe t on the chart.
--- NOTE | 2019-06-16 12:18 | EKG ---
[facility] [place] [address] ELECTROCARDIOGRAM REPORT Name: MATTHEW CALDERON Room #: 52-[facility] IN M.R.#: [id number] Admission: 06/07/19 Attend Phys: Raymond Billings DO Discharge: 06/14/19 Date of : [birth year] Report #: [id number] THIS REPORT FOR: cc: Ana Marx MD, Malathi MD Lundgren,Bebo Florence MD [facility] ~ THIS REPORT FOR: //name// [facility] ED Test Date: 2019-06-07 Test Time: 19:35:26 Pat Name: MATTHEW CALDERON Department: Room: 52 Gender: F Inset Cutter: MICHAEL : 1930 Requested By: Irma Benjamin Order Number: [id number] MD: Bebo Singh Measurements Intervals [place] Rate: 96 P: 64 NH: 132 QRS: -2 QRSD: 73 T: 47 QT: 324 QTc: 410 Interpretive Statements Sinus rhythm No significant abnormality No previous ECG available for comparison Electronically Signed On 06-08-2019 8:55:36 CDT by Bebo Singh [email or web address] <ELECTRONICALLY SIGNED> By: Bebo Singh MD, [facility] 06/08/19 0855 34 34 Bebo Singh MD, [facility] /EPI
== END 2019-06-14 10:45 | DRG 57 ==
LOC: ER 18:35 → EROBS 20:20 → SBH 20:20
PROVIDERS: Emergency Medicine; ADMIT Psychiatry & Neurology Psychiatry
DX: G30.9 Alzheimer's disease, unspecified (principal); F02.81 Dementia in other diseases classified elsewhere, unspecified severity, with behavioral disturbance; N17.9 Acute kidney failure, unspecified; N18.3 Chronic kidney disease, stage 3 (moderate); E46 Unspecified protein-calorie malnutrition; R13.10 Dysphagia, unspecified; J44.9 Chronic obstructive pulmonary disease, unspecified; K21.9 Gastro-esophageal reflux disease without esophagitis; H57.89 Other specified disorders of eye and adnexa; Z79.899 Other long term (current) drug therapy; Z68.36 Body mass index [BMI] 36.0-36.9, adult
CPT/HCPCS: 10880